=== PATIENT | female | born 1965 | race Caucasian/White ===

== ENCOUNTER 2021-08-28 11:48 | Outpatient (CLI) | payer OTHER | END 2021-08-28 11:49 | disposition home or self-care (01) | LOC: BICRAD 11:48 | PROVIDERS: ATTEND Nurse Practitioner Women's Health | DX: R04.2 Hemoptysis (principal) | CPT/HCPCS: 71046 ==

== ENCOUNTER 2022-02-19 07:59 | Outpatient (CLI) | payer OTHER | END 2022-02-19 08:00 | disposition home or self-care (01) | LOC: BICULT 07:59 | PROVIDERS: ATTEND Internal Medicine Gastroenterology | DX: B18.2 Chronic viral hepatitis C (principal); Z12.11 Encounter for screening for malignant neoplasm of colon; D69.6 Thrombocytopenia, unspecified; R79.89 Other specified abnormal findings of blood chemistry; F10.10 Alcohol abuse, uncomplicated; R04.2 Hemoptysis; R16.0 Hepatomegaly, not elsewhere classified; K80.20 Calculus of gallbladder without cholecystitis without obstruction | CPT/HCPCS: 76705 ==

== ENCOUNTER 2022-03-16 07:52 | Outpatient (CLI) | payer OTHER ==
[2022-03-16] MEDS ORDERED: Iopamidol 300 61% 100 ML VIAL FS ONE (15:48)
== END 2022-03-16 07:53 | disposition home or self-care (01) ==
LOC: BICCT 07:52
PROVIDERS: ATTEND Internal Medicine Gastroenterology
DX: K74.60 Unspecified cirrhosis of liver (principal); K80.20 Calculus of gallbladder without cholecystitis without obstruction; R16.1 Splenomegaly, not elsewhere classified; K76.6 Portal hypertension
CPT/HCPCS: 74170; Q9967

== ENCOUNTER 2022-06-23 10:47 | Outpatient (CLI) | payer OTHER | END 2022-06-23 10:48 | disposition home or self-care (01) | LOC: BICRAD 10:47 | PROVIDERS: ATTEND Internal Medicine Gastroenterology | DX: Z12.11 Encounter for screening for malignant neoplasm of colon (principal); K74.60 Unspecified cirrhosis of liver; B18.2 Chronic viral hepatitis C; R04.2 Hemoptysis; F10.10 Alcohol abuse, uncomplicated | CPT/HCPCS: 71046 ==